=== PATIENT | female | born 1975 | race Caucasian/White ===

== ENCOUNTER → 2019-06-06 09:34 | Outpatient (CLI) | payer OTHER, SELFPAY ==
--- NOTE | 2019-06-06 09:47 | RAD_ITS ---
STUDY: X-RAY CHEST REASON FOR EXAM: Female, 43 years old. COUGH TECHNIQUE: PA and lateral views of the chest. COMPARISON: None. FINDINGS: There is minimal linear fibrosis or atelectasis of the left lung base. There is no demonstrated pleural abnormality. Normal size heart. Normal mediastinum and jimbo. Normal visualized pulmonary arteries. Normal visualized aortic arch and descending thoracic aorta. Normal visualized thoracic spine. Normal visualized ribs, clavicles, and shoulders. There is no demonstrated abnormality of the visualized soft tissue structures of the upper abdomen. RAD/Chest PA and Lateral IMPRESSION: Minimal linear fibrosis or atelectasis of the left lung base. Electronically Signed: Daquan Moran MD at 17:12 EST , Service support ,
== END ==
PROVIDERS: PCP Internal Medicine; Referring Provider Nurse Practitioner; Visit Provider Nurse Practitioner
DX: R05 Cough (principal)
CPT/HCPCS: 71046